=== PATIENT | male | born 1990 | race Caucasian/White ===

== ENCOUNTER 2017-02-08 12:47 | Emergency (ER) | payer BC, OTHER ==
[2017-02-08 12:52] VITALS: BP 134/81; PULSE 73; RESP 20; TEMP 98.2
--- NOTE | 2017-02-08 13:28 | ED ---
Wound/Laceration HPI - General Chief Complaint: Wound/Laceration Stated Complaint: laceration Time Seen by Provider: 02/08/17 12:53 Source: patient, RN notes reviewed Mode of arrival: ambulatory Limitations: no limitations - History of Present Illness Initial Comments: 26-year-old gentleman was found with chief complaint of facial laceration. Patient states he was removing some nails from wouldn't states that he caught his face with the side of the hammer. He states he barely struck the area. Patient denies any loss conscious. He states he has no headache no dizziness denies any blurred vision. Patient states that he had his tetanus updated approximately 18 months ago on his son was born. - Related Data Allergies Allergy/AdvReac Type Severity Reaction Status Date / Time No Known Allergies Allergy Verified 02/08/17 12:52 Review of Systems ROS Statement: Those systems with pertinent positive or pertinent negative responses have been documented in the HPI. ROS Other: All systems not noted in ROS Statement are negative. Past Medical History Past Medical History: No Reported History History of Any Multi-Drug Resistant Organisms: None Reported Past Surgical History: No Surgical Hx Reported Past Psychological History: No Psychological Hx Reported Smoking Status: Former smoker Past Alcohol Use History: Occasional Past Drug Use History: None Reported General Exam Limitations: no limitations General appearance: alert, in no apparent distress Head exam: Present: atraumatic, normocephalic, normal inspection Eye exam: Present: normal appearance, PERRL, EOMI, periorbital swelling (Mild swelling to the right superior medial aspect with a 3 cm laceration). Absent: scleral icterus, conjunctival injection, periorbital tenderness ENT exam: Present: normal exam, normal oropharynx, mucous membranes moist, TM's normal bilaterally, normal external ear exam Neck exam: Present: normal inspection, full ROM. Absent: tenderness, meningismus, lymphadenopathy Respiratory exam: Present: normal lung sounds bilaterally. Absent: respiratory distress, wheezes, rales, rhonchi, stridor Cardiovascular Exam: Present: regular rate, normal rhythm, normal heart sounds. Absent: systolic murmur, diastolic murmur, rubs, gallop, clicks Neurological exam: Present: alert, oriented X3, CN II-XII intact, reflexes normal. Absent: motor sensory deficit Skin exam: Present: warm, dry, intact, normal color. Absent: rash Course Vital Signs 02/08/17 12:50 Temperature 98.2 F Pulse Rate 73 Respiratory 20 Rate Blood Pressure 134/81 O2 Sat by Pulse 99 Oximetry Procedures - Laceration Laceration #1 Consent Obtained: verbal consent Indication: laceration Site: face Size (cm): 3 Description: linear Depth: simple, single layer Anesthetic Used: lidocaine 1%, without epi Anesthesia Technique: local infiltration Amount (mls): 3 Pre-repair: wound explored, irrigated extensively, deep structures intact Type of Sutures: nylon Size of Sutures: 6-0 Number of Sutures: 7 Technique: simple, interrupted Patient Tolerated Procedure: well, no complications Additional Comments: Bacitracin applied Medical Decision Making - Medical Decision Making 26-year-old male presented for facial laceration. Patient's laceration was closed using sutures. Patient has no signs of head injury denies headache no dizziness. Patient will be discharged at this time. Return parameters discussed wound care was discussed Disposition Clinical Impression: Facial laceration Disposition: HOME SELF-CARE Condition: Stable Instructions: Care For Your Stitches (ED), Facial Laceration (ED) Additional Instructions: Have Sutures removed in 7 days. Please return to the Emergency Department if symptoms worsen or any other concerns. Referrals: None,Stated [Primary Care Provider] - 1-2 days Time of Disposition: 13:27
== END 2017-02-08 13:40 | disposition home or self-care (01) ==
LOC: EC 12:47
DX: S01.81XA Laceration without foreign body of other part of head, initial encounter (principal); Z87.891 Personal history of nicotine dependence; W22.8XXA Striking against or struck by other objects, initial encounter; Y93.89 Activity, other specified
CPT/HCPCS: 12013; 99282